=== PATIENT | male | born 1930 | race Caucasian/White ===

== ENCOUNTER 2020-02-29 19:10 | Emergency (ER) | payer MEDICARE ==
[~2020-02-29] VITALS: Ht 177.8 cm; Wt 61.2 kg
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
[~2020-02-29 19:10] MED LIST: AMBIEN 5 MG TABL5 M1 PO; COUMADIN 5 MG TA5 M1; FAMCYCLOVIR 50500 M1 PO; FISH OIL 1,0001 EAC5; LIPITOR10 MG; LUMIGAN5 ML; MEDROLDOSEPACK PO; NORCO 5-325 TA1 EACH PO; PEPCID20 MG PO; SOTALOL80 MG PO; TIMOLOL GL0.5 %/5 M1
[2020-02-29 19:54] LABS: ABSOLUTE LYMPHOCYTES 0.3 thou/uL (0.8-5.3); ABSOLUTE MONOCYTES 0.3 thou/uL (0.0-1.2); ABSOLUTE NEUTROPHILS 3.7 thou/uL (1.6-8.1); BASOPHILS 0.9 %; HEMATOCRIT 47.1 % (42.0-52.0); HEMOGLOBIN 15.9 gm/dL (14.0-18.0); LYMPHOCYTES 7.4 %; MCH 31.4 pg (26.0-34.0); MCHC 33.8 g/dL (28.0-37.0); MONOCYTES 7.8 %; MPV 7.6 fl. (7.2-11.1); NUCLEATED RBCS 0 /100WBC; PLATELET COUNT* 149 thou/uL (150-400); POLYS 83.9 %; RBC 5.07 mil/uL (4.50-6.00); RDW-CV 14.2 % (10.5-14.5); WBC 4.4 thou/uL (4.0-11.0)
[2020-02-29 19:57] LABS: CALCIUM 9.5 mg/dL (8.5-10.1); CREATININE 1.6 mg/dL (0.6-1.3); POTASSIUM 3.8 mmol/L (3.5-5.1)
[2020-02-29 19:59] LABS: INR 1.1; PROTIME 11.4 Seconds (9.20-11.50)
[2020-02-29 20:08] LABS: ALBUMIN 3.8 g/dL (3.4-5.0); MAGNESIUM 2.1 mg/dL (1.8-2.4); TOTAL PROTEIN 7.3 g/dL (6.4-8.2)
[2020-02-29] MEDS ORDERED: LOPRESSOR50 MG PO (20:49)
[2020-02-29] MEDS ORDERED: ARICEPT10 M1 PO (20:51)
[2020-02-29] MEDS ORDERED: LANOXIN125 MCG PO (20:51)
[2020-02-29] MEDS ORDERED: VITAMIN D31250 MC1 PO (20:52)
[2020-02-29] MEDS ORDERED: FUROSEMIDE 20 M20 MG PO (20:53)
[2020-02-29] MEDS ORDERED: OMEPRAZOLE 20 M20 M1 PO (20:54)
[2020-02-29] MEDS ORDERED: NAMENDA 5 MG TAB5 M1 PO (20:54)
[2020-02-29] MEDS ORDERED: MIDODRINE HCL 55 M1 PO (20:54)
[2020-02-29] MEDS ORDERED: EFFER-K 10 MEQ10 ME1 PO (20:55)
[2020-02-29] MEDS ORDERED: SUPER THERAVIT1 EACH PO (20:55)
[2020-02-29 21:18] LABS: URINE BILIRUBIN NEGATIVE (Negative); URINE BLOOD 2+ (Negative); URINE CLARITY CLEAR; URINE COLOR YELLOW; URINE GLUCOSE-RANDOM NEGATIVE (Negative); URINE KETONES 1+ (Negative); URINE LEUKOCYTES-REFLEX NEGATIVE (Negative); URINE NITRITE-REFLEX NEGATIVE (Negative); URINE PROTEIN 2+ (Negative); URINE SPECIFIC GRAVITY >= 1.030 (1.005-1.030); URINE UROBILINOGEN 0.2 E.U./dl (0.2-1.0)
[2020-02-29 21:27] LABS: CRYSTALS None Seen /LPF (None Seen); HYALINE CASTS 0-3 Few /LPF (None Seen); MUCUS None Seen strn/LPF (None Seen); SQUAMOUS NONE SEEN /LPF (0-3); URINE RBC 3-10 Few /HPF (0-2); URINE WBC-REFLEX 6-15 Few /HPF (0-5)
[2020-02-29 21:28] LABS: BACTERIA-REFLEX 1-9 Few /HPF (None Seen)
--- NOTE | 2020-02-29 21:44 | NUR ---
PT INCONTINENT OF STOOL, PERICARE PROVIDED, CHOUDHURY INSERTED; REPORTED TO DOCTOR FEVER 101.0. ORDERS RECEIVED;CONTACTED DAUGHTER JAZMIN TAM (DAUGHTER) [phone]; DAUGHTER REPORTED PTS SPOUSE HAS DEMENTIA UNABLE TO MAKE DECISIONS; DISCUSSED WITH DAUGHTER PTS CURRENT CONDITION; PHONE TRANSFERRED TO DOCTOR; MONITOR TRACING AFIB; PT WITHIN LINE OF SITE
[2020-02-29 23:02] LABS: BE -0.6 mmol/L (-2 to +3); PCO2 28.2 mmHg (35.0-45.0); pH 7.494 (7.340-7.450)
[2020-02-29 23:04] LABS: PO2 49.7 mmHg (75.0-100.0)
--- NOTE | 2020-02-29 23:33 | NUR ---
ANBX INFUSING, MAINTAINENCE FLUIDS INFUSING; PT REPOSITIONED;COVID ISOLATION MAINTAINED; WILL CONTINUE TO MONITOR CLOSELY
[2020-03-01 01:09] LABS: BE 2.4 mmol/L (-2 to +3); PCO2 34.1 mmHg (35.0-45.0); pH 7.488 (7.340-7.450)
[2020-03-01 01:11] LABS: PO2 52.5 mmHg (75.0-100.0)
[2020-03-01 01:51] LABS: BE 0.9 mmol/L (-2 to +3); PCO2 38.1 mmHg (35.0-45.0); PO2 61.5 mmHg (75.0-100.0); pH 7.434 (7.340-7.450)
[2020-03-01 06:30] VITALS: BP 127/61
--- NOTE | 2020-03-01 08:02 | NUR ---
PT FAMILY CALLED BY HOSPITALIST. UPDATED ON PT CONDITION. PT FAMILY COMING TO ER. PT PROGNOSIS IS POOR. FAMILY WANTS PT TO BE COMFORTABLE.
--- NOTE | 2020-03-01 08:55 | NUR ---
AFTER SPEKING WITH FAMILY AND DR, PT WAS REMOVED FROM BIPAP. FAMILY SPOKE WITH PT VIA PHONE. NURSE AT BEDSIDE WITH PT. WILL CONT TO MONITOR.
--- NOTE | 2020-03-01 09:03 | NUR ---
SPOKE WITH DPO/DAUGHTER JAZMIN. PT IS TO BE MADE COMFORTABLE, BIPAP REMOVED, COMFORT ORDERES RECEIVED.
[2020-03-01 09:45] VITALS: BP 0/0
--- NOTE | 2020-03-01 09:45 | NUR ---
TOD 9838, DR IZAGUIRRE AT BEDSIDE NO CARDIAC ACTIVITY NOTED ON ULTRASOUND, NO RESP. FAMILY NOTIFIED
--- NOTE | 2020-03-01 11:40 | NUR ---
CLAUDINE LOUISE HERE TO COLLECT WALLET, DENTURES, AND WATCH.
--- NOTE | 2020-03-01 12:12 | EKG ---
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 : 1930 Requested By: Mamie Weems Order Number: [id number] MD: Benton Moreau Measurements Intervals [place] Rate: 140 P: -20 KS: 232 QRS: -57 QRSD: 102 T: 94 QT: 278 QTc: 424 Interpretive Statements Ventricular-paced complexe atrial fibrillation LAFB Compared to ECG 02/07/2013 10:00:07 Left anterior fascicular block now present ST (T wave) deviation now present Sinus bradycardia no longer present Ventricular premature complex(es) no longer present Electronically Signed On 03-01-2020 12:12:46 TRAVEL RN OR by Benton Moreau [email or web address] <ELECTRONICALLY SIGNED> By: Benton Moreau MD, [facility] 03/01/201211 31 31 Benton Moreau MD, [facility] /EPI
== END 2020-03-01 09:45 | disposition still patient (30) ==
LOC: M.ERS 19:10 → M.TBA-ER 22:14
PROVIDERS: Emergency Medicine
DX: U07.1 COVID-19 (principal); A41.9 Sepsis, unspecified organism; J18.9 Pneumonia, unspecified organism; I48.20 Chronic atrial fibrillation, unspecified; R41.82 Altered mental status, unspecified; Z88.5 Allergy status to narcotic agent; Z88.1 Allergy status to other antibiotic agents; Z79.01 Long term (current) use of anticoagulants; Z79.899 Other long term (current) drug therapy; Z90.89 Acquired absence of other organs; Z98.890 Other specified postprocedural states